=== PATIENT | female | born 1965 ===

== ENCOUNTER 2021-01-01 11:45 | Inpatient (IN) | payer OTHER ==
[~2021-01-01] VITALS: Ht 157.5 cm; Wt 72.6 kg
[2021-01-01] MEDS ORDERED: ZOLOFT100 MG PO (14:27)
[2021-01-01] MEDS ORDERED: COZAAR50 MG PO (14:28)
[2021-01-01] MEDS ORDERED: CYMBALTA30 MG PO (14:28)
[2021-01-01] MEDS ORDERED: AZULFIDINE500 M1 PO (14:28)
[2021-01-01] MEDS ORDERED: OMEGA-31000 MG PO (14:29)
[2021-01-01] MEDS ORDERED: FOLIC ACID0.8 M1 PO (14:29)
[2021-01-01] MEDS ORDERED: ZOCOR40 MG PO (14:29)
[2021-01-01] MEDS ORDERED: D3 + K2 DOTS 11 EACH PO (14:29)
[2021-01-01] MEDS ORDERED: CLONAZEPAM1 MG PO (14:30)
[2021-01-04] MEDS ORDERED: MEDROLPACK PO (07:37)
[2021-01-04] MEDS ORDERED: ACETAMINOPHEN-1 EAC2 PO (07:37)
[2021-01-04] MEDS ORDERED: COLACE100 MG PO (07:37)
== END 2021-01-05 14:39 | disposition home or self-care (01) | DRG 473 ==
LOC: SURG 01-04 05:25 → O/R 01-04 05:25 → SURH 01-04 07:00 → SURG 01-04 11:53
PROVIDERS: ADMIT Orthopaedic Surgery Orthopaedic Surgery of the Spine; ATTEND Orthopaedic Surgery Orthopaedic Surgery of the Spine
PROC: 07DS0ZZ Extraction of Vertebral Bone Marrow, Open Approach (ICD-10-PCS; 2021-01-04)
PROC: 0RG20A0 Fusion of 2 or more Cervical Vertebral Joints with Interbody Fusion Device, Anterior Approach, Anterior Column, Open Approach (ICD-10-PCS; principal; 2021-01-04 07:00)
DX: M50.023 Cervical disc disorder at C6-C7 level with myelopathy (principal)